=== PATIENT | male | born 1990 | race African-American/Black ===

== ENCOUNTER 2024-02-08 01:07 | Emergency (ER) | payer BC ==
[~2024-02-08] VITALS: Ht 177.8 cm; Wt 68.0 kg
[2024-02-08] MEDS ORDERED: TDAP DIPH,PERTUSS,TET VAC/PF 0.5 ML DISP.SYRIN IM ONE (01:45)
[2024-02-08 01:52] VITALS: O2SAT 98
[2024-02-08] MEDS ORDERED: CEPH500T PO (22:59)
== END 2024-02-08 01:52 | disposition left against medical advice (07) ==
LOC: ER 01:24
DX: S01.111A Laceration without foreign body of right eyelid and periocular area, initial encounter (principal); W19.XXXA Unspecified fall, initial encounter; Y93.89 Activity, other specified; Y92.89 Other specified places as the place of occurrence of the external cause; Y99.8 Other external cause status
CPT/HCPCS: A4606; A4663

== ENCOUNTER 2024-02-15 13:45 | Emergency (ER) | payer BC ==
[~2024-02-15] VITALS: Ht 175.3 cm; Wt 68.0 kg
[~2024-02-15 13:45] MED LIST: CEPH500T PO
[2024-02-15 13:47] VITALS: O2SAT 99
== END 2024-02-15 14:07 | disposition home or self-care (01) ==
LOC: ER 13:46
DX: S01.111D Laceration without foreign body of right eyelid and periocular area, subsequent encounter (principal); Z48.02 Encounter for removal of sutures; Z79.899 Other long term (current) drug therapy; Z60.2 Problems related to living alone; X58.XXXD Exposure to other specified factors, subsequent encounter
CPT/HCPCS: A4606; A4663